=== PATIENT | male | born 1955 | race American Indian/Alaskan Native ===

== ENCOUNTER 2019-10-16 11:33 | Emergency (ER) | payer MEDICARE ==
--- NOTE | 2019-10-16 12:04 | Event Note ---
ED Screening Note Date of service: 10/16/19 Time: 12:04 ED Screening Note: Patient here reports started sneezing about a week ago and now with weakness, CROWE, eye pain, coughing up yellow pleghm. SOBOE. Head throbbing pain and feels chills. Denies CP. reports runny nose and congestion H/O PAD with L AKA, high cholesterol and HTN. Took Alkalizes. HEENT- Congested ith runny nose, Lungs:CTAB. NL WOB This initial assessment/diagnostic orders/clinical plan/treatment(s) is/are subject to change based on patients health status, clinical progression and re- assessment by fellow clinical providers in the ED. Further treatment and workup at subsequent clinical providers discretion. Patient/guardian urged not to elope from the ED as their condition may be serious if not clinically assessed and managed. Initial orders include: CXR
--- NOTE | 2019-10-16 12:58 | XRay Report ---
CHEST 2 VIEWS INDICATION: cough, chills, wreakness soboe. COMPARISON: Chest x-ray from 04/05/2019 FINDINGS: Support devices: None. Heart: Within normal limits. Lungs/pleura: No acute air space or interstitial disease. No pneumothorax. Additional findings: None. IMPRESSION: 1. No acute findings. Signer Name: Evert Jamison MD Signed: 10/16/2019 12:54 PM Workstation Name: [id number]
[2019-10-16] MEDS ORDERED: SODIUM CHLORIDE 0.9% 500 ML 500 ML IV ONE (13:32)
--- NOTE | 2019-10-16 13:32 | Emergency Department Report ---
- General Chief Complaint: Weakness Stated Complaint: FLU SX Time Seen by Provider: 10/16/19 12:03 Source: patient Mode of arrival: Wheelchair Limitations: No Limitations - History of Present Illness Initial Comments: 64-year-old male with history of hypertension, CAD, peripheral artery disease with left AKA amputation, presents to ED with URI symptoms 1 week. Patient states he was around a family member that had been sick URI symptoms. Patient reports he has been having fever and chills, headache, nasal congestion, productive cough, nausea and vomiting, body aches. Patient denies any chest pain. Reports mild shortness of breath. Patient states he has been taking Lorena -Firth for his symptoms but feels as if he is not getting any better. Patient states he received a flu shot last month. Patient reports decreased appetite over the last 3 days. Denies abdominal pain. States he feels as if he is dehydrated. Patient states he has been drinking water, Gatorade, and Sprite. [facility] Complaint: fever, cough, nasal congestion -: week(s) (1) Severity: moderate Consistency: constant Improves With: nothing Worsens With: nothing Associated Symptoms: fever, chills, myalgias, headache, rhinorrhea, nasal congestion, cough, shortness of breath, nausea, vomiting. denies: stiff neck, c hest pain, abdominal pain Treatments Prior to Arrival: "cold medicine" - Related Data Previous Rx's Medication Instructions Recorded Last Taken Type Benzonatate [Tessalon Perles] 100 mg PO Q8HR PRN #20 capsule 10/16/19 Unknown Rx Ondansetron [Zofran Odt] 4 mg PO Q8HR PRN #20 tab.rapdis 10/16/19 Unknown Rx Allergies Allergy/AdvReac Type Severity Reaction Status Date / Time atorvastatin [From Lipitor] Allergy Unknown Verified 10/16/19 11:37 ED Review of Systems ROS: Stated complaint: FLU SX Other details as noted in HPI Comment: All other systems reviewed and negative Constitutional: chills, fever, weakness ENT: congestion Respiratory: cough Cardiovascular: denies: chest pain Gastrointestinal: nausea, vomiting. denies: abdominal pain, diarrhea Musculoskeletal: myalgia Neurological: headache ED Past Medical Hx - Past Medical History Previous Medical History?: Yes Hx Hypertension: Yes Additional medical history: Glaucoma - Surgical History Past Surgical History?: Yes Additional Surgical History: Left AKA. Cardiac stents - Social History Smoking Status: Former Smoker Substance Use Type: None - Medications Home Medications: Home Medications Medication Instructions Recorded Confirmed Last Taken Type Benzonatate [Tessalon Perles] 100 mg PO Q8HR PRN #20 capsule 10/16/19 Unknown Rx Ondansetron [Zofran Odt] 4 mg PO Q8HR PRN #20 tab.rapdis 10/16/19 Unknown Rx ED Physical Exam - General Limitations: No Limitations General appearance: alert, in no apparent distress - Head Head exam: Present: atraumatic, normocephalic - Eye Eye exam: Present: normal appearance, EOMI. Absent: conjunctival injection - ENT ENT exam: Present: mucous membranes dry - Neck Neck exam: Present: normal inspection - Respiratory Respiratory exam: Present: normal lung sounds bilaterally. Absent: respiratory distress - Cardiovascular Cardiovascular Exam: Present: regular rate, normal rhythm - GI/Abdominal GI/Abdominal exam: Present: soft. Absent: distended, tenderness - Extremities Exam Extremities exam: Present: other (left AKA present) - Neurological Exam Neurological exam: Present: alert, oriented X3 - Psychiatric Psychiatric exam: Present: normal affect, normal mood - Skin Skin exam: Present: warm, dry, intact, normal color ED Course Vital Signs 10/16/19 10/16/19 10/16/19 11:56 12:30 16:01 Temperature 97.9 F 97.9 F Pulse Rate 93 H 63 Respiratory 20 20 16 Rate Blood Pressure 131/89 Blood Pressure 168/85 [Right] O2 Sat by Pulse 100 100 98 Oximetry ED Medical Decision Making - Lab Data Result diagrams: 10/16/19 13:27 10/16/19 13:27 - Radiology Data Radiology results: report reviewed, image reviewed - Medical Decision Making 64-year-old male with URI symptoms 1 week. Vital signs are normal, patient is afebrile. Chest x-ray is normal. Shows some signs of dehydration with hemoglobin of 16.1. Patient given 500 mL bolus of normal saline. States he is feeling much better at this time. Will discharge home at this time. Outpatient follow-up advised. Return precautions given. - Differential Diagnosis influenza, pneumonia, bronchitis, URI Critical care attestation.: If time is entered above; I have spent that time in minutes in the direct care of this critically ill patient, excluding procedure time. ED Disposition Clinical Impression: Upper respiratory infection, Viral illness, Dehydration, mild Disposition: DC-01 TO HOME OR SELFCARE Is pt being admited?: No Condition: Stable Instructions: Dehydration (ED), Upper Respiratory Infection (ED) Prescriptions: Benzonatate [Tessalon Perles] 100 mg PO Q8HR PRN #20 capsule PRN Reason: Cough Ondansetron [Zofran Odt] 4 mg PO Q8HR PRN #20 tab.rapdis PRN Reason: Vomiting Referrals: PRIMARY CARE,MD [Primary Care Provider] - 3-5 Days Time of Disposition: 15:42
[2019-10-16 13:44] LABS: Basophils # (Auto) 0.1 K/mm3 (0.0-0.1); Basophils % (Auto) 0.7 % (0.0-1.8); Eosinophils # (Auto) 0.1 K/mm3 (0.0-0.4); Eosinophils % (Auto) 0.4 % (0.0-4.3); Hematocrit 48.6 % (35.5-45.6); Hemoglobin 16.1 gm/dl (11.8-15.2); Lymphocytes # (Auto) 1.9 K/mm3 (1.2-5.4); Lymphocytes % (Auto) 14.3 % (13.4-35.0); Mean Corpuscular HGB Conc 33 % (32-34); Mean Corpuscular Volume 93 fl (84-94); Monocytes # (Auto) 1.1 K/mm3 (0.0-0.8); Monocytes % (Auto) 8.4 % (0.0-7.3); Platelet Count 601 K/mm3 (140-440); Red Blood Count 5.22 M/mm3 (3.65-5.03); Red Cell Distribution Width 15.2 % (13.2-15.2)
[2019-10-16 13:57] LABS: BUN/Creatinine Ratio 24; Blood Urea Nitrogen 12 mg/dL (9-20); Calcium 9.6 mg/dL (8.4-10.2); Hemolysis Index 2
[2019-10-16 16:01] VITALS: BP 168/85
== END 2019-10-16 16:01 | disposition home or self-care (01) ==
LOC: ED 11:33
DX: B34.9 Viral infection, unspecified (principal); E86.0 Dehydration; J06.9 Acute upper respiratory infection, unspecified; I10 Essential (primary) hypertension
CPT/HCPCS: 36415; 71046; 80048; 85025; 99284; J7040